=== PATIENT | female | born 1935 | race Caucasian/White ===

== ENCOUNTER 2024-01-18 20:16 | Emergency (ER) | payer OTHER, MEDICARE ==
[2024-01-18 20:30] VITALS: BP 116/52; PULSE 80; RESP 18; TEMP 98.2; BMI 24.7
[2024-01-18] MEDS ORDERED: ONDANSETRON *ODT* 4 MG TABLET ONE (20:39)
[2024-01-18] MEDS ORDERED: ACETAMINOPHEN 325 MG TABLET (FP) ONE (20:40)
[2024-01-18] MEDS: ACETAMINOPHEN 500 MG TABLET (FP) PO ONE (20:47)
[2024-01-18] MEDS: ONDANSETRON *ODT* 4 MG TABLET SL ONE (20:47)
[2024-01-18 21:18] LABS: BASO % 0.3 % (0-2.0); EOS % 0.9 % (0-4.5); HEMATOCRIT 40.5 % (32.4-45.2); LYMPH % 7.1 % (8-40); MCHC 34.6 g/dl (32.0-36.0); MEAN CELL VOLUME 89.7 fl (80-96); MEAN PLT VOLUME 9.8 fl (7.5-11.1); MONO % 8.6 % (3.8-10.2); NEUT % 83.1 % (42.8-82.8); PLATELET COUNT 105 10^3/uL (134-434); RBC 4.52 M/mm3 (3.60-5.2); RDW 14.3 % (11.6-15.6)
[2024-01-18 21:44] LABS: POTASSIUM 3.5 mmol/L (3.5-5.1)
[2024-01-18 21:45] LABS: CALCIUM 8.8 mg/dL (8.5-10.1)
[2024-01-18 21:46] LABS: ALBUMIN 3.5 g/dl (3.4-5.0); BLOOD UREA NITROGEN 15.8 mg/dL (7-18)
[2024-01-18 21:51] LABS: BILIRUBIN,TOTAL 0.8 mg/dL (0.2-1); TOT PROT 6.2 g/dl (6.4-8.2)
[2024-01-18] MEDS: SODIUM CHLORIDE 0.9% 500 ML INFUS.BAG IV ONE (22:03)
[2024-01-18] MEDS: PSYLLIUM 5.85 GM PACKET PO ONE (22:04)
[2024-01-19] MEDS ORDERED: PSYLLIUM 5.85 GM PACKET PO ONE (22:02)
== END 2024-01-19 00:10 | disposition home or self-care (01) ==
LOC: JER 20:16
DX: R53.1 Weakness (principal); R42 Dizziness and giddiness; R11.0 Nausea; U07.1 COVID-19
CPT/HCPCS: 0241U-QW; 36415; 71045-TC-FY; 80053; 84484; 85025; 93005; 93010; 99285-25; Q0162